=== PATIENT | female | born 1970 | race African-American/Black ===

== ENCOUNTER 2019-04-14 13:35 | Emergency (ER) | payer SELFPAY ==
[~2019-04-14] VITALS: Ht 165.1 cm; Wt 76.4 kg
[2019-04-14 13:37] VITALS: Ht 165.1 cm; Wt 76.4 kg
[2019-04-14 14:09] LABS: UDS - AMPHET NEGATIVE QUAL (NEGATIVE); UDS - BARB NEGATIVE QUAL (NEGATIVE); UDS - BENZO NEGATIVE QUAL (NEGATIVE); UDS - COCAINE NEGATIVE QUAL (NEGATIVE); UDS - OPIATE NEGATIVE QUAL (NEGATIVE); UDS - PCP NEGATIVE QUAL (NEGATIVE); UDS - THC NEGATIVE QUAL (NEGATIVE)
[2019-04-14] MEDS ORDERED: ULTRAM50 MG PO (15:15)
[2019-04-14] MEDS ORDERED: PREDNISONE10 MG PO (15:15)
[2019-04-14 15:51] VITALS: BP 132/78
== END 2019-04-14 15:51 | disposition home or self-care (01) ==
LOC: D.ER 13:35
PROVIDERS: Family Medicine
DX: S63.501A Unspecified sprain of right wrist, initial encounter (principal); X50.9XXA Other and unspecified overexertion or strenuous movements or postures, initial encounter

== ENCOUNTER 2020-03-11 06:15 | Emergency (ER) | payer SELFPAY ==
[~2020-03-11] VITALS: Ht 165.1 cm; Wt 78.6 kg
[~2020-03-11 06:15] MED LIST: PREDNISONE10 MG PO; ULTRAM50 MG PO
[2020-03-11 06:20] VITALS: BP 143/87; Ht 165.1 cm; Wt 78.6 kg
[2020-03-11] MEDS ORDERED: LEVO-T25 MCG (06:22)
[2020-03-11] MEDS ORDERED: HYDROCODON-ACE1 EA10 PO (06:47)
[2020-03-11] MEDS ORDERED: STERAPRED DS 1010 MG PO (06:47)
== END 2020-03-11 07:18 | disposition home or self-care (01) ==
LOC: D.ER 06:15
DX: L25.9 Unspecified contact dermatitis, unspecified cause (principal); T14.8XXA Other injury of unspecified body region, initial encounter; W57.XXXA Bitten or stung by nonvenomous insect and other nonvenomous arthropods, initial encounter; Y93.9 Activity, unspecified; Y92.9 Unspecified place or not applicable; M54.6 Pain in thoracic spine; M54.2 Cervicalgia